=== PATIENT | female | born 1955 | race Caucasian/White ===

== ENCOUNTER 2018-03-10 07:08 | Day surgery (SDC) | payer MEDICARE, OTHER ==
[~2018-03-10] VITALS: Ht 172.7 cm; Wt 108.9 kg
[~2018-03-10 07:08] MED LIST: ALLO300T2 PO; AMLO5TAB13 PO; CHOL100029 PO; CLON0.1T PO; LORA-622 PO; LOSA-49 PO; METF-371 PO; METO25TA5 PO; PRAV20TA3 PO; TIZA4TAB9 PO; TRAM50TA2 PO
[2018-03-10] MEDS ORDERED: LIDOCAINE 2%HCL (LOCAL ANESTH.) INJ 20ML MDV ONE (07:20)
[2018-03-10] MEDS ORDERED: IODIXANOL 320MG/ML 100ML BTL IV ONE (07:20)
[2018-03-10] MEDS ORDERED: ANGIOMAX 250 MG VIAL IV ONE (07:46)
[2018-03-10] MEDS ORDERED: VERAPAMIL 2.5MG/ML INJ 2ML VIAL IV ONE (07:47)
[2018-03-10] MEDS ORDERED: fentaNYL CITRATE 100 MCG/2 ML VL ONE (07:47)
[2018-03-10] MEDS ORDERED: MIDAZOLAM HCL 1MG/1ML-2 ML VIAL ONE (07:47)
[2018-03-10] MEDS ORDERED: SODIUM CHL 0.9% 0 ML ONE (07:47)
[2018-03-10] MEDS ORDERED: HEPARIN SODIUM (PORCINE) 5000 UNITS/ML 1ML VIAL ONE (08:31)
== END 2018-03-10 10:25 | disposition home or self-care (01) ==
LOC: CATH 07:08
PROVIDERS: ATTEND Internal Medicine
DX: I25.10 Atherosclerotic heart disease of native coronary artery without angina pectoris (principal); R94.39 Abnormal result of other cardiovascular function study; I10 Essential (primary) hypertension; E78.5 Hyperlipidemia, unspecified; J44.9 Chronic obstructive pulmonary disease, unspecified; E11.9 Type 2 diabetes mellitus without complications; Z79.899 Other long term (current) drug therapy; Z88.6 Allergy status to analgesic agent; Z82.49 Family history of ischemic heart disease and other diseases of the circulatory system
CPT/HCPCS: 93458; A6257; C1769; C1894; J1644; J2250; J3010; J7030; Q9967; 99152